=== PATIENT | male | born 1995 | race Caucasian/White ===

== ENCOUNTER 2021-07-13 09:23 | Emergency (ER) | payer OTHER ==
[~2021-07-13] VITALS: Ht 175.3 cm; Wt 104.3 kg
[2021-07-13 09:53] LABS: URINE CLARITY CLEAR; URINE COLOR YELLOW
[2021-07-13 09:54] LABS: ACETEST (KETONE CONFIRMATORY) Small (Negative); URINE BILIRUBIN NEGATIVE (Negative); URINE BLOOD NEGATIVE (Negative); URINE GLUCOSE-RANDOM NEGATIVE (Negative); URINE KETONES 1+ (Negative); URINE LEUKOCYTES-REFLEX NEGATIVE (Negative); URINE NITRITE-REFLEX NEGATIVE (Negative); URINE PROTEIN NEGATIVE (Negative); URINE REDUCING SUBSTANCE NEGATIVE (Negative); URINE SPECIFIC GRAVITY 1.025 (1.005-1.030); URINE UROBILINOGEN 0.2 E.U./dl (0.2-1.0)
[2021-07-13 10:59] LABS: ABSOLUTE LYMPHOCYTES 1.5 thou/uL (0.8-5.3); ABSOLUTE MONOCYTES 1.1 thou/uL (0.0-1.2); ABSOLUTE NEUTROPHILS 8.1 thou/uL (1.6-8.1); BASOPHILS 0.3 %; EOSINOPHILS 0.3 %; HEMATOCRIT 43.6 % (42.0-52.0); HEMOGLOBIN 14.7 gm/dL (14.0-18.0); MCH 29.9 pg (26.0-34.0); MCHC 33.6 g/dL (28.0-37.0); MCV 88.8 fL (80.0-100.0); MPV 7.2 fl. (7.2-11.1); NUCLEATED RBCS 0 /100WBC; PLATELET COUNT* 272 thou/uL (150-400); POLYS 75.4 %; RBC 4.91 mil/uL (4.50-6.00); RDW-CV 13.6 % (10.5-14.5); WBC 10.7 thou/uL (4.0-11.0)
[2021-07-13 11:26] LABS: CALCIUM 9.6 mg/dL (8.5-10.1); CREATININE 1.4 mg/dL (0.6-1.3); POTASSIUM 3.9 mmol/L (3.5-5.1)
[2021-07-13 11:31] LABS: ALBUMIN 4.5 g/dL (3.4-5.0); TOTAL BILIRUBIN 0.5 mg/dL (<0.1-1.0); TOTAL PROTEIN 7.9 g/dL (6.4-8.2)
[2021-07-13] MEDS ORDERED: FLOMAX0.4 MG PO (13:07)
[2021-07-13] MEDS ORDERED: ZOFRAN ODT4 MG DISSOLVE (13:07)
[2021-07-13] MEDS ORDERED: IBU600 MG PO (13:07)
[2021-07-13] MEDS ORDERED: HYDROCODON-ACE1 EAC7 PO (13:13)
--- NOTE | 2021-07-13 13:16 | EKG ---
[place] [address] ELECTROCARDIOGRAM REPORT Name: LUDA JIMENEZ Room: [facility]#: [id number] Admission: 07/13/21 Attend Phys: Discharge: Date of : [birth year] Date of Service: 07/13/21 103 Report #: [id number] THIS REPORT FOR: //name// [facility] ED Test Date: 2021-07-13 Test Time: 10:32:50 Pat Name: LUDA JIMENEZ Department: Room: Gender: Snack Stewardess: : 1995 Requested By: Antwan Ny Order Number: [id number] MD: Jonnie Whiteside Measurements Intervals [place] Rate: 77 P: 54 AR: 182 QRS: 47 QRSD: 96 T: 5 QT: 351 QTc: 398 Interpretive Statements Sinus rhythm No previous ECG available for comparison Electronically Signed On 07-13-2021 13:16:11 BUS [employer] by Jonnie Whiteside [email or web address] <ELECTRONICALLY SIGNED> By: Jonnie Whiteside MD, [facility] 07/13/21 1316 31 1032 Jonnie Whiteside MD, FACC /EPI
[2021-07-13 13:35] VITALS: BP 160/88
== END 2021-07-13 13:35 | disposition home or self-care (01) ==
LOC: M.ERS 09:23
PROVIDERS: Emergency Medicine Emergency Medical Services; Physician Assistant Medical
DX: N20.1 Calculus of ureter (principal); R19.7 Diarrhea, unspecified; R11.2 Nausea with vomiting, unspecified